=== PATIENT | female | born 1955 | race Caucasian/White ===

== ENCOUNTER 2023-07-07 06:29 | Day surgery (SDC) | payer MEDICARE, BC ==
[2023-07-07 06:48] LABS: HEMOGLOBIN 12.8 g/dL (11.2-15.5); MEAN CORPUSCULAR HEMOGLOBIN 30.1 pg (31.6-35.5); MEAN CORPUSCULAR HGB CONC 33.7 g/dL (31.6-35.5); MEAN CORPUSCULAR VOLUME 89.4 fL (81.4-99.0); RED BLOOD CELL COUNT 4.25 M/uL (3.77-5.24)
[2023-07-07] MEDS ORDERED: Bupivacaine 0.5% 50 ML MDV ONE (06:53)
[2023-07-07 07:11] LABS: ALANINE AMINOTRANSFERASE,ALT 42 U/L (12-78); ALBUMIN 3.6 g/dL (3.4-5.0); ALKALINE PHOSPHATASE 63 U/L (46-116); ASPARTATE AMNIOTRANSFERASE,AST 30 U/L (15-37); BILIRUBIN TOTAL 0.8 mg/dL (0.2-1.0); BLOOD UREA NITROGEN,BUN 9 mg/dL (7-18); CALCIUM 9.2 mg/dL (8.5-10.1); CARBON DIOXIDE,CO2 31 mmol/L (21-32); CHLORIDE,CL 101 mmol/L (100-108); CREATININE 0.9 mg/dL (0.6-1.0); EST CRCL DRUG DOSING (CG) 50.94 mL/min; ESTIMATED GFR 69 mL/min (>60); GLUCOSE RANDOM 88 mg/dL (74-106); POTASSIUM,K 3.5 mmol/L (3.6-5.2); PROTEIN TOTAL,TP 7.4 g/dL (6.4-8.2); SODIUM,NA 141 mmol/L (140-148)
[2023-07-07 07:12] LABS: ANION GAP 12.5 mmol/L (5.0-14.0)
[2023-07-07] MEDS: Nozin Nasal Sanitizer NASBOTH ONE (07:37)
[2023-07-07] MEDS: Scopalamine 1mg/3day Transdermal Patch TRDERM SCH (07:43)
[2023-07-07] MEDS: Lactated Ringers 1,000 ML IV SCH (07:44)
[2023-07-07] MEDS ORDERED: fentaNYL 250 MCG/5 ML SDV ONE (07:49)
[2023-07-07] MEDS ORDERED: Dexamethasone 4 MG/ML SDV ONE (07:50)
[2023-07-07] MEDS ORDERED: Ondansetron 4 MG/2 ML SDV ONE (07:50)
[2023-07-07] MEDS ORDERED: Propofol 200 MG/20 ML SDV ONE (07:50)
[2023-07-07] MEDS: ceFAZolin 2 GM in Premix Bag 1 BAG IV ONE (07:55)
[2023-07-07] MEDS: Bupivacaine 0.5% 30 ML SDV INJECT ONE ×2 (08:28)
[2023-07-07] MEDS ORDERED: Acetaminophen/HYDROcodone 325-5 MG Tab PO PRN (09:57)
[2023-07-07] MEDS: Ondansetron 4 MG/2 ML SDV IVPUSH ONE (10:36)
[2023-07-07] MEDS ORDERED: droPERidol 5 MG/2 ML SDV IVPUSH PRN (10:46)
== END 2023-07-07 13:45 | disposition home or self-care (01) ==
LOC: JP.SDS 06:29
PROVIDERS: ATTEND Specialist
DX: S83.242A Other tear of medial meniscus, current injury, left knee, initial encounter (principal); I10 Essential (primary) hypertension; M94.262 Chondromalacia, left knee; X58.XXXA Exposure to other specified factors, initial encounter
CPT/HCPCS: 29877; 36415; 80053; 85027; 93005; 93010; A9270; J0665; J0690; J1100; J2405; J2704; J3010; J7120